=== PATIENT | male | born 1960 | race Caucasian/White ===

== ENCOUNTER 2017-01-24 13:02 | Emergency (ER) | payer OTHER ==
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
[2017-01-24 13:41] LABS: BASOPHIL # 0.1 K/uL (0.0-0.2); BASOPHIL % 0.9 %; EOSINOPHIL # 0.3 K/uL (0.0-0.5); EOSINOPHIL % 5.8 %; HEMATOCRIT 36.8 % (37.0-53.0); HEMOGLOBIN 12.8 g/dL (12.0-17.0); IMMATURE GRANULOCYTE % 0.3 %; LYMPHOCYTE # 1.5 K/uL (0.8-4.0); LYMPHOCYTE % 26.2 %; MCH 31.3 pg (27.0-34.0); MCHC 34.8 gm/dL (32.0-36.5); MONOCYTE # 0.6 K/uL (0.0-1.0); MONOCYTE % 10.3 %; MPV 9.1 fl (9.4-12.4); NEUTROPHIL # (ANC) 3.3 K/uL (1.4-9.0); NEUTROPHIL % 56.5 %; NRBC % 0 /100WBC (0-0.00); PLATELET COUNT 176 K/uL (150-450); RBC 4.09 M/uL (4.00-6.00); RDW-CV 12.2 % (11.9-14.6); WBC 5.8 K/uL (4.0-11.0)
[2017-01-24 13:47] LABS: PROTIME 9.4 SECONDS (9.8-11.4); PTT 24 SECONDS (25-32)
[2017-01-24 13:58] LABS: ALBUMIN 3.7 gm/dL (3.5-5.0); ALK PHOS 30 IU/L (33-138); ALT 30 IU/L (12-78); ANION GAP 14.3 (10.0-19.0); AST 20 IU/L (10-40); BLOOD UREA NITROGEN 14 mg/dL (6-24); CALCIUM 8.7 mg/dL (8.5-10.5); CHLORIDE 105 mMol/L (96-110); CO2 24 mMol/L (22-32); CPK 53 IU/L (35-332); CREATININE 0.7 mg/dL (0.6-1.3); ESTIMATED GFR (MDRD EQUATION) > 60; MAGNESIUM 2.2 mg/dL (1.8-2.6); POTASSIUM 4.3 mMol/L (3.7-5.1); SODIUM 139 mMol/L (135-145); TOTAL BILIRUBIN 0.3 mg/dL (0.0-1.5); TOTAL PROTEIN 7.1 g/dL (6.0-8.4)
== END 2017-01-24 16:20 | disposition disaster alternative care site (69) ==
LOC: GMED 13:02
PROVIDERS: Nurse Practitioner Family
DX: I10 Essential (primary) hypertension (principal); R42 Dizziness and giddiness; Z88.0 Allergy status to penicillin; Z88.1 Allergy status to other antibiotic agents; Z79.899 Other long term (current) drug therapy; Z90.49 Acquired absence of other specified parts of digestive tract; Z98.890 Other specified postprocedural states

== ENCOUNTER → 2017-02-24 | Outpatient (CLI) | payer OTHER | END | disposition disaster alternative care site (69) | LOC: LNHI 16:50 | DX: I10 Essential (primary) hypertension (principal); R00.2 Palpitations ==